=== PATIENT | male | born 1960 | race Hispanic/Latino ===

== ENCOUNTER 2017-12-30 10:24 | Inpatient (IN) | payer BC, OTHER ==
[~2017-12-30] VITALS: Ht 172.7 cm; Wt 69.6 kg
[2017-12-30] MEDS ORDERED: ASPIRIN 81 MG CHEW TAB PO ONE ×2 (11:15→15:45)
--- NOTE | 2017-12-30 11:35 | Diagnostic Imaging Report ---
PROCEDURE:CHEST 2 VIEWS TECHNIQUE:PA and lateral chest INDICATION:Chest pain COMPARISON:None. FINDINGS: The lungs are clear and symmetrically inflated. No pleural effusions. Normal heart size, mediastinal contour, and pulmonary vasculature. Intact skeleton. CONCLUSION: Normal chest. Dictated by: Mathew Linder M.D. on 12/30/2017 at 11:35 Electronically approved by: Mathew Linder M.D. on 12/30/2017 at 11:35
[2017-12-30 14:17] LABS: BASOPHILS % 0.3 % (0.0-1.0); EOSINOPHILS % 0.4 % (0.0-6.0); HEMATOCRIT 39.8 % (38.2-49.6); HEMOGLOBIN 13.9 g/dL (14.0-18.0); LYMPHOCYTES # (AUTO) 1.1 (1.0-3.2); LYMPHOCYTES % 15.4 % (18.0-39.1); MEAN CORPUSCULAR HEMOGLOBIN 32.7 pg (28-32); MEAN CORPUSCULAR HGB CONC 34.9 g/dL (31-35); MEAN CORPUSCULAR VOLUME 93.6 fL (81-99); MONOCYTES # (AUTO) 0.7 (0.2-0.8); NEUTROPHILS # (AUTO) 5.4 (2.1-6.9); NEUTROPHILS % 74.6 % (38.7-80.0); PLATELET COUNT 209 x10e3/uL (140-360); RED BLOOD COUNT 4.25 x10e6/uL (4.3-5.7); RED CELL DISTRIBUTION WIDTH 12.5 % (11.7-14.4)
[2017-12-30 14:18] LABS: BILIRUBIN,URINE NEGATIVE (NEGATIVE); KETONES,URINE TRACE (NEGATIVE); LEUKOCYTE ESTERASE ,URINE NEGATIVE (NEGATIVE); NITRITE,URINE NEGATIVE (NEGATIVE); PROTEIN,URINE DIPSTICK NEGATIVE (NEGATIVE); URINE UROBILINOGEN 4 mg/dL (0.2 - 1)
[2017-12-30 14:20] LABS: CLARITY,URINE CLEAR (CLEAR); COLOR,URINE STRAW (YELLOW)
[2017-12-30 14:21] LABS: INR 0.98; PROTHROMBIN TIME 12.2 seconds (11.9-14.5)
[2017-12-30 14:22] LABS: PARTIAL THROMBOPLASTIN TIME 27.3 seconds (23.8-35.5)
[2017-12-30 14:31] LABS: ALANINE AMINOTRANSFERASE 14 IU/L (0-55); ALBUMIN 4.2 g/dL (3.5-5.0); ALBUMIN/GLOBULIN RATIO 1.1 (0.8-2.0); ALKALINE PHOSPHATASE 66 IU/L (40-150); ANION GAP 15.9 mmol/L (8-16); BLOOD UREA NITROGEN 9 mg/dL (7-26); BUN/CREATININE RATIO 11 (6-25); CARBON DIOXIDE 28 mmol/L (22-29); CHLORIDE 98 mmol/L (98-107); CREATINE KINASE 112 IU/L (30-200); CREATININE, SERUM 0.85 mg/dL (0.72-1.25); EST GLOMERULAR FILTRATION RATE > 60 ML/MIN (60-); GLUCOSE 249 mg/dL (74-118); POTASSIUM 3.9 mmol/L (3.5-5.1); SODIUM 138 mmol/L (136-145)
[2017-12-30 14:45] LABS: B-TYPE NATRIURETIC PEPTIDE2 < 10.0 pg/mL (0-100)
[2017-12-30] MEDS ORDERED: SODIUM CHLORIDE FLUSH 10 ML SYR INJ PRN (15:45)
[2017-12-30] MEDS ORDERED: ONDANSETRON HCL INJ 2 MG/ML VIAL IV PRN (15:45)
--- OUTSIDE RECORDS SUMMARY | 2017-12-30 18:43 | XMS REPORT ---
Author Author [facility] Address Unknown Phone Unavailable Care Team Providers Care Trimmer Helper Name Role Phone MAX SHAIKH Unavailable Unavailable Problems This patient has no known problems. Allergies, Adverse Reactions, Alerts This patient has no known allergies or adverse reactions. Medications This patient has no known medications. 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 FINDINGS: The lungs are clear and symmetrically inflated. No pleural effusions. Normal heart size, mediastinal contour, and pulmonary vasculature. Intact skeleton. CONCLUSION: Normal chest. Dictated by: Theron Linder M.D. on 12/30/2017 at 11: 35 Electronically approved by: Theron Linder M.D. on 12/30/2017 at 11:35 Dictated By: THERON LINDER MD [id number] Transcribed By: JANA on 12/30/17 113 COPY TO: DENNISE MONTENEGRO NP
[2017-12-30 19:25] VITALS: BP 155/82
[2017-12-30 20:00] VITALS: BP 155/82
[2017-12-30] MEDS: CEFEPIME HCL 1 GM VIAL IV SCH (20:54)
[2017-12-30] MEDS ORDERED: SODIUM CHLORIDE 0.9% 250ML 250 ML ONE (20:55)
[2017-12-30 22:38] LABS: CREATINE KINASE 94 IU/L (30-200)
[2017-12-31] VITALS: BP 135/63
[2017-12-31 04:00] VITALS: BP 127/73
[2017-12-31] MEDS: CEFEPIME HCL 1 GM VIAL IV SCH ×3 (05:40→21:29)
[2017-12-31 07:23] LABS: BASOPHILS % 0.2 % (0.0-1.0); EOSINOPHILS # (AUTO) 0.1 (0.0-0.4); EOSINOPHILS % 1.1 % (0.0-6.0); HEMATOCRIT 38.4 % (38.2-49.6); HEMOGLOBIN 13.1 g/dL (14.0-18.0); LYMPHOCYTES # (AUTO) 1.6 (1.0-3.2); LYMPHOCYTES % 25.3 % (18.0-39.1); MEAN CORPUSCULAR HEMOGLOBIN 32.4 pg (28-32); MEAN CORPUSCULAR HGB CONC 34.1 g/dL (31-35); MONOCYTES # (AUTO) 0.7 (0.2-0.8); MONOCYTES % 10.4 % (4.4-11.3); NEUTROPHILS % 62.7 % (38.7-80.0); PLATELET COUNT 184 x10e3/uL (140-360); RED BLOOD COUNT 4.04 x10e6/uL (4.3-5.7); RED CELL DISTRIBUTION WIDTH 12.3 % (11.7-14.4)
[2017-12-31 07:48] LABS: ANION GAP 12.7 mmol/L (8-16); BLOOD UREA NITROGEN 10 mg/dL (7-26); BUN/CREATININE RATIO 13 (6-25); CALCIUM 8.8 mg/dL (8.4-10.2); CARBON DIOXIDE 27 mmol/L (22-29); CHLORIDE 104 mmol/L (98-107); CHOL/HDL RATIO 2.8 (3.9-4.7); CHOLESTEROL 179 MD/DL (0-199); CREATINE KINASE 76 IU/L (30-200); CREATININE, SERUM 0.78 mg/dL (0.72-1.25); EST GLOMERULAR FILTRATION RATE > 60 ML/MIN (60-); GLUCOSE 135 mg/dL (74-118); HDL CHOLESTEROL 63 MG/DL (40-60); LDL CHOLESTEROL 88 MG/DL (60-130); POTASSIUM 3.7 mmol/L (3.5-5.1); SODIUM 140 mmol/L (136-145); TRIGLYCERIDES 142 MG/DL (0-149)
[2017-12-31 08:00] VITALS: BP 141/75
[2017-12-31] MEDS: ASPIRIN 81 MG ENTERIC COATED PO SCH (08:50)
[2017-12-31] MEDS ORDERED: LORAZEPAM 0.5 MG TAB PO PRN (10:30)
--- NOTE | 2017-12-31 10:36 | History and Physical ---
CHIEF COMPLAINT: Chest pain. HPI: This is a 57-year-old male who presented to the emergency room with worsening chest discomfort for the last 3 to 4 days progressively getting worse. Chest pain was associated with bilateral leg pains as well. He has been a smoker for the last 45 years, 1 pack per day. Also, he is a heavy drinker. He denies any complaints of nausea, vomiting, diarrhea or focal weakness. He reports one of his physicians one time told him that he has high blood pressure. He denies any nausea, vomiting or diarrhea. REVIEW OF SYSTEMS GENERAL: Denies any fever or chills. HEAD: Denies any head trauma or head injury. ENT: Denies any earache, nosebleed or throat pain. CVS: Chest pain. RESPIRATORY: Mild shortness of breath. He has been a smoker for many years. GI: Denies any nausea or vomiting. MUSCULOSKELETAL: Denies any arthralgias or myalgias. NEURO: Denies any focal weakness. REST: The rest of the review of systems is negative except as in HPI. PAST SURGICAL HISTORY: None. FAMILY AND SOCIAL HISTORY: He lives with a roommate. He drinks 16 to 18 beers every day. He smokes less than a pack per day for 40-plus years. He denies any family history of heart disease. PHYSICAL EXAMINATION VITAL SIGNS: Temperature 97, pulse 67, blood pressure 141/75, respiratory rate 18, O2 sat 94% on room air. SKIN: Warm and dry. GENERAL APPEARANCE: He is a middle-aged male, not in any obvious distress. He is awake and alert, oriented to time, place and person. He has some tremors. HEENT: Head is atraumatic and normocephalic. Pupils are reactive. NECK: Supple. No JVD. Thyroid is not enlarged. No cervical lymphadenopathy. CHEST: Clear to auscultation bilaterally. No wheezing. No crackles. HEART: S1 and S2 audible. ABDOMEN: Soft, nontender and nondistended. Bowel sounds are audible. No hepatosplenomegaly. EXTREMITIES: No clubbing, cyanosis or edema. NEURO: Awake, alert, following commands. LABS: White count is 6.3, hemoglobin 13, platelets 184. Chemistries within normal limits. Three sets of cardiac enzymes have been negative. INR is 0.98. Chest x-ray was done in the emergency room. I have reviewed the images. Not showing any focal infiltrate. ASSESSMENT: Mr. Hope is a 57-year-old male with chest pain, shortness of breath, heavy drinker and smoker, high likelihood of coronary artery disease and peripheral arterial disease. PLAN 1. Cardiology consult. 2. Patient will need medications to prevent alcohol withdrawal. 3. Will discontinue the antibiotic. No need for antibiotic at this point. 4. Blood pressure is slightly on the high side. Will follow closely. May need antihypertensive medications. 5. Case was discussed with Dr. Doan from cardiology. Job#: [id number]
[2017-12-31 16:00] VITALS: BP 142/72
--- NOTE | 2017-12-31 18:24 | Consultation ---
DATE OF CONSULTATION: December 31, 2017 CARDIOLOGY CONSULTATION REQUESTING PHYSICIAN: Dr. Leanne eSbastian. REASON FOR CONSULTATION: Chest pain. 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 He reports he began having chest pain Wednesday morning that was pressure-like sensation, 9 out of 10 in severity. The pain lasted hours without radiation, shortness of breath, nausea or diaphoresis. The pain worsened Wednesday night. He, therefore, presented to the ER the following day for further evaluation. He denies any edema, orthopnea, PND or palpitations. There were no aggravating or alleviating factors. Of note, he does endorse left leg pain with walking that is better with sitting but does not endorse pain onset with walking a certain distance. REVIEW OF SYSTEMS: Negative except as per HPI. PAST MEDICAL HISTORY: Reported history of CVA/TIA. PAST SURGICAL HISTORY: None. ALLERGIES: NO KNOWN DRUG ALLERGIES. MEDICATIONS: Please see medication list. SOCIAL HISTORY: He smokes 6 to 7 cigarettes a day, but he previously smoked up to 2 packs a day for 45 years. He drinks on the weekends. Denies any illicit drugs. 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 PHYSICAL EXAMINATION VITAL SIGNS: Temperature 98 degrees, pulse 67, respiratory rate 18, blood pressure 141/75, oxygen saturation 100% on room air. GENERAL: A well-developed, well-nourished man in no acute distress. HEENT: Normocephalic, atraumatic. Pupils equal, no scleral icterus. NECK: Supple. No thyromegaly or cervical lymphadenopathy. He has a right carotid bruit. LUNGS: Clear to auscultation bilaterally. No wheezes or crackles. CARDIOVASCULAR: Normal rate, regular rhythm. No murmur. Normal S1 and S2. ABDOMEN: Soft, nontender. EXTREMITIES: No edema. NEURO: Nonfocal exam. LABS: WBC 6.32, hemoglobin 13.1, hematocrit 38.4, platelets 184. Sodium 140, potassium 3.7, chloride 104, CO2 27, BUN 10, creatinine 0.78. Troponin 0.004. BNP less than 10. Cholesterol 179, triglycerides 142, LDL 88, HDL 63. EKG: Normal sinus rhythm. Pulmonary disease pattern. Left anterior fascicular block. Septal infarct, age undetermined. IMPRESSION 1. Chest pain. 1. Suspect claudication. 2. Tobacco abuse. 3. Alcohol use. RECOMMENDATIONS: Patient has ruled out for myocardial infarction with serial cardiac biomarkers. Will obtain echocardiogram, carotid ultrasound, and bilateral lower extremity arterial Doppler. Evaluate for ischemia due to his multiple risk factors with a treadmill nuclear stress test. Thank you for this consult. We will continue to follow. Job#: [id number] EV
[2017-12-31 20:00] VITALS: BP 136/79
--- NOTE | 2017-12-31 20:39 | Cardiology Report ---
DATE OF STUDY: December 31, 2017 PROCEDURE TITLE Rest stress single isotope SPECT imaging with exercise stress and gated SPECT imaging. INDICATIONS: Chest pain. PROCEDURE: The patient performed treadmill exercise using a Marquise protocol, exercising for 750 seconds to stage 3 and completing estimated work load of 10.1 metabolic equivalents (METs). The test was terminated due to fatigue. Heart rate was 88 beats per minute and increased to 146 beats per minute at peak exercise, which was 90% of the maximum predicted heart rate. The rest blood pressure was 138/67 and increased to 209/83 mmHg, which is a hypertensive response. The patient did not develop any symptoms other than fatigue during the procedure. The resting electrocardiogram demonstrated normal sinus rhythm. There were no ST segment changes consistent with myocardial ischemia. Myocardial perfusion imaging was performed at rest following the injection of 11 mCi of tetrofosmin. At peak exercise, the patient was injected with 30.1 mCi of tetrofosmin. Exercise continued for 1 minute and gated post tomographic imaging was performed. FINDINGS: The overall quality of the study is fair. The left ventricular cavity is noted to be normal size on the rest and stress studies. SPECT images demonstrate homogenous tracer distribution throughout the myocardium. The gated SPECT imaging reveals normal myocardial thickening and wall motion. Left ventricular ejection fraction was calculated to be greater than 70%. IMPRESSION: Myocardial perfusion imaging is normal. Overall left ventricular systolic function was normal without regional wall motion abnormalities. Normal clinical and ECG exercise stress test. Hypertensive response to exercise was noted. Job#: [id number] GH cc: Norman ALARCON
[2017-12-31] MEDS: ACETAMINOPHEN/CODEINE 300MG - 30MG TAB PO PRN (22:36)
[2018-01-01] VITALS: BP 122/63
[2018-01-01 04:00] VITALS: BP 126/73
[2018-01-01] MEDS: CEFEPIME HCL 1 GM VIAL IV SCH ×3 (06:00→20:54)
[2018-01-01 08:00] VITALS: BP 128/69
[2018-01-01] MEDS: ASPIRIN 81 MG ENTERIC COATED PO SCH (08:51)
[2018-01-01 12:00] VITALS: BP 132/60
[2018-01-01 16:00] VITALS: BP 118/68
--- NOTE | 2018-01-01 16:48 | Progress Note ---
DATE: January 01, 2018 CARDIOLOGY PROGRESS NOTE SUBJECTIVE: No complaints today. OBJECTIVE VITAL SIGNS: Temperature 97.3, heart rate 64, respiratory rate 20, blood pressure 132/60. O2 sat 97% on room air. GENERAL: No acute distress. Alert. NECK: No JVD. CHEST: Clear to auscultation. CARDIOVASCULAR: Regular rate and rhythm. Normal S1 and S2. No S3, no S4. No murmurs or rubs. ABDOMEN: Soft, nontender and nondistended. EXTREMITIES: No edema. CARDIOVASCULAR MEDICATIONS: Aspirin 81 mg daily. Ativan. Thiamine. Cefepime. Zofran. STUDIES: Reviewed. No lab work for today. Discussed arterial, carotid, echo and stress results. TELEMETRY: So far shows sinus rhythm. ASSESSMENT: 1. Atypical chest pain. 2. Dysesthesia to lower extremities with negative Doppler ultrasound for arterial evaluation standpoint, possibly peripheral neuropathy, might be related to alcohol use. 3. Smoker. 4. Alcohol abuse. PLAN: Okay to discharge from a cardiovascular standpoint. If continues to have recurrent atypical episode of chest pain, consider outpatient telemetry monitoring. Smoking cessation, alcohol cessation and further risk factor optimization as outpatient. Job#: [id number]
[2018-01-01 20:00] VITALS: BP 152/77
[2018-01-01] MEDS: ACETAMINOPHEN/CODEINE 300MG - 30MG TAB PO PRN (20:54)
[2018-01-02] VITALS: BP 106/57
[2018-01-02 04:00] VITALS: BP 117/67
[2018-01-02] MEDS: CEFEPIME HCL 1 GM VIAL IV SCH ×3 (05:31→22:28)
[2018-01-02 08:00] VITALS: BP 142/72
[2018-01-02] MEDS: ASPIRIN 81 MG ENTERIC COATED PO SCH (08:58)
[2018-01-02] MEDS: THIAMINE HCL 100 MG TAB PO SCH (08:58)
[2018-01-02 12:00] VITALS: BP 129/75
--- NOTE | 2018-01-02 15:44 | Progress Note ---
DATE: January 02, 2018 CARDIOLOGY PROGRESS NOTE SUBJECTIVE: Lower extremity dysesthesias. Occasional chest pain when moving. OBJECTIVE VITAL SIGNS: Temperature 98.1, heart rate 104, respiratory rate 20, blood pressure 129/75, and O2 sat 99% on room air. GENERAL: No acute distress. Alert. NECK: No JVD. CHEST: Clear to auscultation. CARDIOVASCULAR: Regular rate and rhythm. Normal S1 and S2. ABDOMEN: Soft, nontender and nondistended. EXTREMITIES: No edema. CARDIOVASCULAR MEDICATIONS: Aspirin 81 mg daily. STUDIES: No lab work for today. Blood culture, no growth after 48 hours. TELEMETRY: In sinus rhythm. ASSESSMENT 1. Atypical chest pain. 2. Dysesthesia to lower extremities; I suspect peripheral neuropathy. 3. Smoker. 4. Alcohol abuse. RECOMMENDATIONS 1. Okay to discharge from a cardiovascular standpoint. Outpatient telemetry monitoring advised. 2. Smoking cessation. 3. Alcohol cessation. 4. Outpatient risk factor optimization. Job#: [id number] URMILA
[2018-01-02 16:00] VITALS: BP 135/75
[2018-01-02] MEDS: BUDESONIDE 0.5MG/2 ML NEB INH SCH (19:20)
[2018-01-02] MEDS: ALBUTEROL/IPRATROPIUM 3 ML NEB NEB SCH (19:20)
[2018-01-02 20:00] VITALS: BP 177/92
[2018-01-03] VITALS (7 sets, daily range): BP systolic 116–153; BP diastolic 64–89
[2018-01-03] MEDS: ALBUTEROL/IPRATROPIUM 3 ML NEB NEB SCH ×3 (01:10→14:04)
[2018-01-03] MEDS: CEFEPIME HCL 1 GM VIAL IV SCH ×2 (05:22→13:48)
[2018-01-03] MEDS: BUDESONIDE 0.5MG/2 ML NEB INH SCH (07:33)
[2018-01-03] MEDS: ASPIRIN 81 MG ENTERIC COATED PO SCH (10:21)
[2018-01-03] MEDS: THIAMINE HCL 100 MG TAB PO SCH (10:21)
--- NOTE | 2018-01-03 11:40 | Progress Note ---
DATE: January 03, 2018 CARDIOLOGY PROGRESS NOTE SUBJECTIVE: The patient denies chest pain or shortness of breath. OBJECTIVE: VITAL SIGNS: Temperature 95.5 degrees, pulse 86, respiratory rate 18, blood pressure 153/79, oxygen saturation 99% on room air. GENERAL: Awake, alert, in no acute distress. LUNGS: Clear to auscultation bilaterally. No wheezes or crackles. CARDIOVASCULAR: Normal rate, regular rhythm. No murmur. Normal S1 and S2. ABDOMEN: Soft, nontender. EXTREMITIES: No edema. CARDIAC MEDICATIONS: Aspirin 81 mg p.o. daily. TELEMETRY: Normal sinus rhythm. LABS: None today. IMPRESSION 1. Atypical chest pain. 2. Lower extremity discomfort, likely peripheral neuropathy. 3. Tobacco abuse. 4. Alcohol abuse. RECOMMENDATIONS: The patient ruled out for myocardial infarction with serial cardiac biomarkers. Nuclear stress test was without evidence of ischemia. No evidence of peripheral arterial disease on bilateral lower extremity arterial Dopplers. Patient can be discharged home from a cardiac standpoint. He needs to follow up for outpatient telemetry monitoring. Discussed smoking cessation and alcohol cessation. Risk factor optimization as outpatient. Thank you for this consult. We will continue to follow. Job#: [id number] VAS
--- NOTE | 2018-01-03 14:25 | Discharge Summary ---
FINAL DIAGNOSES 1. Atypical chest pain, cardiac workup negative. 2. Smoker. 3. Alcohol use. 4. Possible chronic obstructive pulmonary disease. ADMISSION HISTORY AND HOSPITAL COURSE: Mr. Hope is a 57-year-old male admitted with chest pain. Cardiac workup was done, which was negative. Patient underwent a nuclear stress test and cardiology evaluated the patient. They have cleared the patient for discharge. Patient was about to be discharged, started having episodes of wheezing, responded very well to nebulizer treatment. He will be discharged home to follow up with primary care physician and follow up with me in 2 to 3 weeks. JOSHUA AYERS MD Job#: [id number] [facility]
== END 2018-01-03 16:12 | disposition home or self-care (01) | DRG 191 ==
LOC: ER 10:24 → ERHOLD 18:40 → MED/SURG3 18:42
PROVIDERS: ADMIT Internal Medicine; ATTEND Internal Medicine
DX: J44.1 Chronic obstructive pulmonary disease with (acute) exacerbation (principal); F10.99 Alcohol use, unspecified with unspecified alcohol-induced disorder; R07.89 Other chest pain; I25.10 Atherosclerotic heart disease of native coronary artery without angina pectoris; F17.210 Nicotine dependence, cigarettes, uncomplicated; I73.9 Peripheral vascular disease, unspecified; I44.4 Left anterior fascicular block; Z86.73 Personal history of transient ischemic attack (TIA), and cerebral infarction without residual deficits; I87.8 Other specified disorders of veins
CPT/HCPCS: 36415; 71046; 78452; 80048; 80053; 80061; 81001; 82550; 82553; 82948; 83605; 83880; 84484; 85025; 85610; 85730; 87040; 87400; 93005; 93017; 93306; 93880; 93925; 94640; 99284; A9502; J0692; J3411; J7050